=== PATIENT | male | born 1970 | race Caucasian/White ===

== ENCOUNTER 2018-07-27 02:35 | Outpatient (CLI) | payer BC, SELFPAY ==
[2018-07-27 07:55] LABS: HCT 42.4 % (40.0-50.0); HGB 14.1 g/dL (13.5-17.5); Mean Corp. HGB Concentration 33.3 g/dL (32.0-36.0); Mean Corpuscular Hemoglobin 29.6 pg (27.0-33.0); Mean Corpuscular Volume 89.1 fL (80-95); Mean Platelet Volume 9.1 fL (8.0-11.0); Platelet Count 291 x1000/uL (130-400); RBC 4.76 m/cumm (4.50-6.00); RBC Distribution Width 13.4 % (11.8-14.1); White Blood Cell Count 7.36 k/cumm (4.4-10.8)
[2018-07-27 09:19] LABS: ALT 35 U/L (12-78); AST 21 U/L (15-37); Albumin 3.6 g/dL (3.4-5.0); Alkaline Phosphatase 97 U/L (46-116); Anion Gap 5.1 mmol/L (3-11); BUN 24 mg/dL (7-18); Bilirubin, Total 0.7 mg/dL (0.2-1.0); CO2 31.9 mmol/L (21.0-32.0); CREATININE 1.07 mg/dL (0.70-1.30); Calcium 9.1 mg/dL (8.5-10.1); Chloride 98 mmol/L (98-107); Glucose 90 mg/dL (70-100); HDL Cholesterol 48 mg/dL (40-60); Potassium 4.6 mmol/L (3.5-5.1); Sodium 135 mmol/L (136-145); Total Protein 7.6 g/dL (6.4-8.2); Triglyceride 96 mg/dL (30-150)
[2018-07-27 09:26] LABS: Calculated LDL 402; Cholesterol 469 mg/dL (50-200)
[2018-07-30 11:30] LABS: PSA, Screening 0.3 ng/ml (0-2.5)
== END 2018-07-27 02:55 ==
PROVIDERS: PCP Family Medicine; Visit Provider Family Medicine
DX: E78.5 Hyperlipidemia, unspecified (principal); Z00.00 Encounter for general adult medical examination without abnormal findings; Z12.5 Encounter for screening for malignant neoplasm of prostate
CPT/HCPCS: 36415; 80053; 80061; 83721; 84153; 85027

== ENCOUNTER 2018-11-16 09:53 | Outpatient (CLI) | payer BC, SELFPAY ==
--- NOTE | 2018-11-16 15:15 | DI.RAD_ITS ---
EXAM: XR KNEE LT 4V AP,LAT,TOMMY,PAT INDICATION: LT LEG/KNEE PAIN AND SWELLING. COMPARISON: No exams were available for comparison TECHNIQUE: 2D digital imaging was performed. FINDINGS: Four views were obtained. No prior examination is available. Well-circumscribed is sclerotic lesion s noted in distal femur and proximal tibia consistent with bone islands. No other significant bony a bnormality seen. IMPRESSION:
== END 2018-11-16 10:13 ==
PROVIDERS: PCP Family Medicine; Visit Provider Chiropractor Orthopedic
DX: M25.562 Pain in left knee (principal); M79.605 Pain in left leg; M89.8X6 Other specified disorders of bone, lower leg
CPT/HCPCS: 73564

== ENCOUNTER 2018-11-29 00:37 | Outpatient (CLI) | payer BC, SELFPAY ==
--- NOTE | 2018-11-29 15:40 | DI.MRI_ITS ---
EXAM: MR LUMBAR SPINE WO CLINICAL HISTORY: LT SCIATICA. TECHNIQUE: Multiplanar multisequence MRI was performed. COMPARISON: No exams were available for comparison FINDINGS: The T12-L1 through L2-3 levels are unremarkable. At L3-4, there is a large left lateral disc herniation with extrusion of disc material superiorly pos terior to the L3 vertebral body. This impinges on the left side of the anterior thecal sac as well a s enters into the arm left foramen impinging L3 nerve root. There is mild disc bulging at L4-5 sligh tly impinges on the anterior thecal sac. There are mild facet degenerative changes but no significan t neural foraminal narrowing. At L5-S1, there is moderate to severe loss of disc height, endplate osteophytes and degenerative sign al changes in the endplates. There is no neural foraminal narrowing or central canal stenosis. IMPRESSION: Large left-sided disc herniation with superior extrusion of disc material at L3-4. There is impingem ent on the left L3 nerve root.
== END 2018-11-29 00:57 ==
PROVIDERS: PCP Family Medicine; Visit Provider Chiropractor Orthopedic
DX: M54.42 Lumbago with sciatica, left side (principal); M51.16 Intervertebral disc disorders with radiculopathy, lumbar region; M47.26 Other spondylosis with radiculopathy, lumbar region
CPT/HCPCS: 72148

== ENCOUNTER 2019-06-09 20:05 | Emergency (ER) | payer BC, SELFPAY ==
[2019-06-09 20:09] VITALS: BP 135/71; PULSE 58; RESP 15; TEMP 36.5; O2SAT 98
[2019-06-09 20:13] VITALS: BP 125/70; PULSE 59
--- NOTE | 2019-06-09 20:19 | ED.GENADUL_ITS ---
Discharge Plan Disposition Patient Disposition: HOME Condition: Stable Discharge Details Chief Complaint: Dizzy/Sync Clinical Impression: Syncope Primary Care Provider: Edison Giles ED Provider: Josep Guzman Home Meds and New Rx's Prescriptions: No Action NO DAILY MEDICATIONS RF: 0 Discharge Instructions Instructions: Syncope (ED) Additional Instructions: Your blood work and cat scan did not show any significant abnormality. there is a chance this could have been a seizure. You should not bathe or swim alone or operate heavy machinery for 6 months or until cleared by primary care provider follow up with your primary care provider this week if you feel more ill, have recurrent episodes, difficulty breathing or chest pain/pressure return to the emergency department Medical Decision Making 48 yo male with hx of bph and hld not on meds comes in with chief complaint of syncope. An hour or so ago at home he states he was walking, felt lightheaded then fell. He was unconscious per report by ems from his for less than a minute. He had 2 more episodes and one episode he hit his head. He arrives hd stable in no distress and has no complaints. He denies any chest pain dyspnea, headache, abd pain, back pain, fevers, cough. He does state he thinks he drank less fluids than he normally does today. He is caox4 with no focal deficits, nih of 0 speech is clear, normal heart souds and normal lung exam and no abd tenderness. EKGunremarkable. Suspect possible dehydration but given multiple episodes will eval for anemia, electrolyte abnormalities and also obtain ct head given the head trauma and monitor. Could also be seizure but no tonic clonic movements labs show no evidence of significant acidosis, normal chemistries and cbc and negative CT for acute pathology. normal tele here and remains asymptomatic, feel he is safe for d/c. Advised no swimming or bathing alone and no driving or operating heavy machinery for 6 months or until cleared by pcp and return precautions given Differential Diagnosis Differential Diagnosis: dehydration, vasovagal, arrythmia Medical Records Medical records reviewed: Yes I reviewed the patient's medical records. Imaging Data Radiologic Study: Attestation: I personally reviewed and interpreted this imaging study as follows: Imaging: CT Scan Radiologist's impression: PROCEDURE INFORMATION: Exam: CT Head Without Contrast Exam date and time: 06/09/2019 20:28 Age: 48 years old Clinical indication: Syncope and collapse; Patient HX: Syncope/head trauma. Py states that he loses unconsciousness and then falls TECHNIQUE: Imaging protocol: Computed tomography of the head without contrast. Radiation optimization: All CT scans at this facility use at least one of these dose optimization techniques: automated exposure control; mA and/or kV adjustment per patient size (includes targeted exams where dose is matched to clinical indication); or iterative reconstruction. COMPARISON: No relevant prior studies available. FINDINGS: Brain: No hemorrhage. No significant white matter disease. No edema. Ventricles: No ventriculomegaly. 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 No acute calvarial pathology. Sinuses: Trace mucosal thickening right ethmoid air cells not likely to be clinically significant. No airfluid levels. Mastoid air cells: No mastoid effusion. Soft tissues: No suspicious lesions. IMPRESSION: 1. No acute intracranial findings. 2. Minor incidental findings as described. Lab Data Lab results reviewed: Yes I reviewed the patient's lab results. ECG Data Attestation: I personally reviewed and interpreted this ECG (s) as follows: Prior ECG tracings: not available for review Interpretation: sinus bradycardia, rate of 57, qtc 385, no acute st t wave ischemic findings HPI General Mode of arrival: EMS . Date/Time Provider Initiated Documentation: 06/09/19 20:17 . Limitations to Documentation: no limitations . Information obtained by: patient . History of Present Illness 48 year old M presents to the emergency department with the chief complaint of syncope, described as moderate, and it has been now resolved. No relieving factors improve symptom(s), No exacerbating factors reported . Patient notes no other symptoms.. Patient did receive the following treatments prior to arrival, none Related Data Home Medications Medication Instructions Recorded Confirmed No Daily Medications 10/22/12 12/12/18 Allergies Allergy/AdvReac Type Severity Reaction Status Date / Time No Known Allergies Allergy Unverified 06/09/19 20:12 General Stated Complaint: Dizzy/Sync PAULINA: 3 Review of Systems All systems reviewed & are unremarkable except as noted in HPI and below Constitutional Constitutional: Denies chills and Denies fever(s) Cardiovascular Cardiovascular: Denies chest pain and Denies dyspnea Respiratory Respiratory: Denies cough and Denies dyspnea Gastrointestinal Gastrointestinal: Denies abdominal pain, Denies nausea and Denies vomiting Musculoskeletal Musculoskeletal: Denies joint swelling Psychiatric Psychiatric: Denies depression PFSH Family History Mother Hyperlipidemia Father No problems noted. Brother No problems noted. Paternal Grandfather , 90 Heart disease Maternal Grandmother , 90 Essential hypertension Heart disease Hyperlipidemia Paternal Grandmother , 89 No problems noted. Son No problems noted. 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 Pets and animals: Yes Pets and animals: cat(s) and dog(s) Sexually active: Yes Do you think of yourself as: straight/heterosexual Current gender identity: male What is your relationship status?: How often do you talk on the phone with friends or family?: once per week How often do you get together with friends or relatives?: once per week How often do you attend spiritism or mosque services?: 4 or more times per year Do you belong to any clubs or organized social groups?: yes Panel score (0-1 are the most socially isolated patients): 3 What type of physical activity do you participate in: walking Duration: 15-30 minutes/day Frequency: 5-6 times per week Rosario/Cheondoism: Pentecostalism Special rosario needs: No Seatbelt use: always Drive intox or ride w/intox form setter/driver: No Do you feel safe at home: Yes Do you feel safe in your relationship?: Yes Exam Const General: no acute distress Orientation: alert HENMT Head: normal to inspection Ears: external ears normal General nose exam: external nose normal Mouth: moist mucous membranes Eyes General: appearance normal, both eyes and all related structures Neck Neck: normal visual inspection Resp Effort & Inspection: normal respiratory effort and able to speak in complete sentences Cardio Rate: regular rate Skin General skin exam: no rashes or lesions noted Neuro General: patient alert and patient oriented x3 Extrem General: normal to inspection Psych Mental Status: mental status grossly normal Course Vital Signs Vital signs: Vital Signs Temperature 36.5 C 06/09/19 20:09 Pulse 58 L 06/09/19 20:09 Respiratory Rate 15 06/09/19 20:09 Blood Pressure 135/71 06/09/19 20:09 Pulse Oximetry 98 06/09/19 20:09 Temperature 36.5 C 06/09/19 20:09 Temperature Source Temporal Artery Scan 06/09/19 20:09 Pulse 58 L 06/09/19 20:09 Respiratory Rate 15 06/09/19 20:09 Respiratory Effort 06/09/19 20:16 Blood Pressure 135/71 06/09/19 20:09 Blood Pressure Position Sitting 06/09/19 20:09 Pulse Oximetry 98 06/09/19 20:09 Oxygen Delivery Method Room Air 06/09/19 20:09 Oxygen Flow Rate 0 06/09/19 20:09 Pain Level 0 06/09/19 20:09
[2019-06-09 20:21] VITALS: BP 131/72; PULSE 58
[2019-06-09 20:23] LABS: BE (Venous) 5.6 mmol/L (-3-3); HCO3 (Venous) 31 mmol/L (22-28); O2 Sat (Venous) 43 % (70-80); TCO2 (Venous) 28 mmol/L (22-29); pCO2 (Venous) 58 mm/Hg (34-47); pH (Venous) 7.34 (7.35-7.45); pO2 (Venous) 26 mm/Hg (28-44)
[2019-06-09 20:24] LABS: Lactate 1.2 mmol/L (0.6-1.4)
[2019-06-09 20:28] VITALS: BP 144/70; PULSE 62
--- NOTE | 2019-06-09 20:43 | DI.CT_ITS ---
EXAM: CT HEAD WO CLINICAL HISTORY: syncope, head trauma. TECHNIQUE: Imaging Protocol: Axial computed tomography images with coronal and sagittal reformatted images were created and reviewed COMPARISON: No exams were available for comparison FINDINGS: Ventricles and Extra axial spaces: Normal in size and morphology for the patient's age. Hemorrhage: None. Cerebral parenchyma: Normal. Midline shift: None. Brainstem/Cerebellum: Normal. Calvarium: No acute fracture. There is a 1.2 x 1.8 x 1.7 cm ground-glass, mildly expansile lesion in the left sphenoid bone adjacent to the sphenoid sinus. 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 Visualized Paranasal sinuses/Mastoids: There is mild mucosal thickening in the ethmoid air cells. Th e remaining visualized paranasal sinuses are clear. The mastoid air cells are well pneumatized. Soft Tissues: Unremarkable. IMPRESSION: No acute intracranial process.No evidence of a skull fracture. RADIATION DOSE DELIVERED: Total DLP DATA REPOSITORY: All CT scans at this facility are submitted to the National Radiology Data Registry (NRDR) Dose Index Registry (DIR) with the [employer] (ACR). RADIATION OPTIMIZATION: All CT scans at this facility use at least one of these dose optimization te chniques: automated exposure control; mA and/or kV adjustment per patient size (includes targeted exa ms where dose is matched to clinical indication); or iterative reconstruction.
--- NOTE | 2019-06-09 20:50 | DI.VRAD_ITS ---
PROCEDURE INFORMATION: Exam: CT Head Without Contrast Exam date and time: 06/09/2019 20:28 Age: 48 years old Clinical indication: Syncope and collapse; Patient HX: Syncope/head trauma. Py states that he loses unconsciousness and then falls TECHNIQUE: Imaging protocol: Computed tomography of the head without contrast. Radiation optimization: All CT scans at this facility use at least one of these dose optimization techniques: automated exposure control; mA and/or kV adjustment per patient size (includes targeted exams where dose is matched to clinical indication); or iterative reconstruction. COMPARISON: No relevant prior studies available. FINDINGS: Brain: No hemorrhage. No significant white matter disease. No edema. Ventricles: No ventriculomegaly. 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 No acute calvarial pathology. Sinuses: Trace mucosal thickening right ethmoid air cells not likely to be clinically significant. No air-fluid levels. Mastoid air cells: No mastoid effusion. Soft tissues: No suspicious lesions. IMPRESSION: 1. No acute intracranial findings. 2. Minor incidental findings as described. Dictated and Authenticated by: Halle Jordan MD. Ordering:RAÚL Car MD
[2019-06-09 20:51] LABS: INR 0.9 (0.9-1.1); PTT Activated 23.9 sec (21.0-31.4); Prothrombin Time 9.4 sec (9.3-11.0)
[2019-06-09 20:55] LABS: ALT 33 U/L (16-63); AST 23 U/L (15-37); Albumin 3.6 g/dL (3.4-5.0); Alkaline Phosphatase 117 U/L (46-116); Anion Gap 6.4 mmol/L (3-11); BUN 22 mg/dL (7-18); Bilirubin, Direct 0.09 mg/dL (0.00-0.20); Bilirubin, Total 0.3 mg/dL (0.2-1.0); CO2 30.6 mmol/L (21.0-32.0); Chloride 101 mmol/L (98-107); Glucose 132 mg/dL (74-106); Lipase 119 U/L (73-393); Magnesium 2.2 mg/dL (1.8-2.4); NT-proBNP 42 pg/mL (<300); Potassium 3.4 mmol/L (3.5-5.1); Sodium 138 mmol/L (136-145)
[2019-06-09 20:57] LABS: Troponin I < 0.05 ng/Ml (<0.06)
[2019-06-09 21:03] LABS: Abs Immature Grans 0.01 k/cumm (0.0-0.09); Absolute Basophil Count 0.03 k/cumm (0.0-0.2); Absolute Eosinophil Count 0.16 k/cumm (0.0-0.7); Absolute Lymphocyte Count 2.77 k/cumm (1.2-3.4); Absolute Monocyte Count 0.29 k/cumm (0.11-0.7); Absolute Neutrophil Count 3.66 k/cumm (1.2-6.7); Basophils % 0.4; Eosinophils % 2.3; HCT 44.3 % (40.0-50.0); HGB 14.8 g/dL (13.5-17.5); Immature Grans % 0.1 %; Mean Corp. HGB Concentration 33.4 g/dL (32.0-36.0); Mean Corpuscular Hemoglobin 29.4 pg (27.0-33.0); Mean Corpuscular Volume 87.9 fL (80-95); Monocytes % 4.2; Platelet Count 285 x1000/uL (130-400); RBC 5.04 m/cumm (4.50-6.00); RBC Distribution Width 13.7 % (11.8-14.1); White Blood Cell Count 6.92 k/cumm (4.4-10.8)
--- NOTE | 2019-06-09 21:12 | NUR.NOTE ---
Nursing Note: Pt denies any dizziness at this time. Has been able to recall events of the day. Stands without assist. Waiting lab results.
[2019-06-09 21:15] VITALS: BP 121/77; PULSE 69; RESP 15
[2019-06-09 21:17] LABS: Bilirubin Negative (Negative); Blood Negative (Negative); Clarity Clear (Clear); Glucose Negative (Negative); Ketones Negative (Negative); Leukocyte Esterase Negative (Negative); Nitrite Negative (Negative); Specific Gravity >= 1.030 (1.005-1.025); Urobilinogen 0.2 EU/dL (Up TO 0.2)
[2019-06-09 21:24] LABS: ETHANOL BLOOD < 3.0 mg/dL (<3)
[2019-06-09 21:41] LABS: *AMPHETAMINES SCREEN URINE Negative (Negative); *BARBITURATES SCREEN URINE Negative (Negative); *BENZODIAZEPINES SCREEN URINE Negative (Negative); Cannabinoids THC Negative (Negative); Cocaine Screen,Urine Negative (Negative); METHADONE URINE SCREEN Negative (Negative); OPIATES URINE SCREEN Negative (Negative)
[2019-06-09 21:46] LABS: Tricyclic Antidepressants Negative (Negative)
--- NOTE | 2019-06-09 21:55 | NUR.NOTE ---
Nursing Note:copied referal to [facility] to make appt the dr is in [place]
[2019-06-09 21:58] VITALS: BP 117/67; PULSE 64; RESP 17; TEMP 36.7; O2SAT 98
== END 2019-06-09 21:55 | disposition home or self-care (01) ==
PROVIDERS: Emergency Provider Emergency Medicine; PCP Family Medicine
DX: R55 Syncope and collapse (principal)
CPT/HCPCS: 80053; 80307; 82805; 83690; 93005; 99284; 70450; 80320; 81003; 82248; 83605; 83735; 83880; 84484; 85025; 85610; 85730; 93010

== ENCOUNTER 2019-06-19 01:28 | Outpatient (CLI) | payer BC, SELFPAY ==
--- NOTE | 2019-06-19 07:34 | DI.US_ITS ---
APPROVED REPORT EXAM: Comprehensive 2D, Doppler, and color-flow Echocardiogram Patient Location: Out-Patient Loading Unit Operator Seating: Carrie Casanova RDCS (AE) Indications: Syncope Other Information Study Quality: Excellent Conclusion Normal left ventricular wall thickness and chamber size. Estimated ejection fraction is 60%. There are no segmental wall motion abnormalities There is no chamber enlargement There are no structural valvular abnormalities Trace physiologic mitral, tricuspid, and pulmonic regurgitation Wall motion Left Ventricle The left ventricle is normal size. The left ventricular systolic function is normal. The left ventric ular ejection fraction is within the normal range. There is normal left ventricular wall thickness. T here is normal LV segmental wall motion. The left ventricular diastolic function is normal. There is no ventricular septal defect visualized. LVEF is 60%. Right Ventricle The right ventricle is normal size. The right ventricular systolic function is normal. The RVSP is 19 mmHg. Atria The left atrium size is normal. The right atrium size is normal. The interatrial septum is intact wit h no evidence for an atrial septal defect. Aortic Valve The aortic valve is normal in structure. Aortic valve is trileaflet. There is no aortic valvular sten osis. No aortic regurgitation is present. Mitral Valve The mitral valve is normal in structure. No evidence of mitral valve stenosis. Trace mitral regurgita tion. Tricuspid Valve The tricuspid valve is normal in structure. There is no tricuspid valve stenosis. Trace tricuspid reg urgitation. Pulmonic Valve The pulmonary valve is normal in structure. There is no pulmonic valvular stenosis. Trace to mild pul jaden regurgitation. Great Vessels The aortic root is normal in size. The ascending aorta is normal in size. IVC is normal in size and c ollapses >50% with inspiration. Pericardium There is no pericardial effusion. There is no pleural effusion. 2D Dimensions IVSD d PLAX 0.88 cm M: 0.6-1.2 LV Vol A2C d MOD 96.3 mL LVPW d PLAX 0.87 cm M: 0.6 - 1.2 LV Vol A4C d MOD 91.8 mL LVID d PLAX 4.89 cm M: 4.2 - 5.8 LA vol/ BSA A2C s A-L 25.2 mL/m2 LVDs 2.90 cm M: 2.5 - 4.0 LA vol/ BSA A4C s A-L 11.9 mL/m2 Ao Root d 2.84 cm M: 3.1 - 3.7 LA Vol/ BSA Biplane s A-L 18.9 mL/m2 RA Area A4C 12.57 cm2 LA Area A4C s MOD 10.54 cm2 RA Vol/ BSA A4C s A-L 15.2 mL/m2 LA Area A2C s MOD 16.74 cm2 Ao Asc Diam d 2.91 cm M: 2.6 - 3.4 LV EF A4C MOD 58.3 % LV EF Teichholz 71.1 % LV EF A2C MOD 58.2 % LVEF (Crook's) 58.18 % M: 52 - 72 LV EF Biplane MOD 58.2 % LV Volume 70.67 mL M: 62 - 150 LV Volume Index 35.15 mL/m2 M: 34 - 74 LV Vol Biplane MOD 94.4 mL FS 40.50 % M-Mode TAPSE 2.50 cm (M/F) >1.7 LV Diastology MV E' medial 0.106 (>0.07 m/s) E/A Ratio 1.6 LV E/e MED 7.75 (<14) MV E Vmax 0.82 (0.4-1.3 m/s) MV E' lateral 0.146 (>0.1 m/s) MV A Vmax 0.50 (0.4-1.3 m/s) LV E/e LAT 5.60 (<14) MV E/A Ratio 1.56 MV E/E' medial 7.75 MV E/E' lateral 5.63 Aortic Valve LVOT Area 3.23 cm2 AoV Area Vmax 2.74 cm2 LVOT Vmax 1.09 m/s AoV Area/ BSA (Vmax) 1.36 cm2/m2 LVOT Mean Gary. 0.66 m/s FLAKO Mean Gary. 2.42 cm2 LVOT Peak Grad 4.8 mmHg FLAKO Mean Gary. Index 1.20 cm2/m2 LVOT Mean Grad 2.1 mmHg LVOT VTI 0.212 m LVOT Diam s 2.00 cm (M/F) 1.5-2.5 AoV Vmax 1.29 (0.5-1.3 m/s) Velocity Ratio 0.84 AoV Mean Gary. 0.88 m/s AoV Peak Grad 6.6 mmHg LVOT SV 68.35 mL AoV Mean Grad 3.7 (<5 mmHg) AoV VTI 0.233 (0.18-0.25 m) AoV Area VTI 2.93 (2.5-4.5 cm2) AoV Area/ BSA (VTI) 1.45 cm/m2 Mitral Valve MV DT 202 (160-240 msec) MV PHT 58 msec MV Area PHT 3.76 cm2 Pulmonary Valve PV Vmax 1.03 (0.5-1.5 m/s) RVOT Peak Gr. 2.15 mmHg PV Peak Grad 4.2 mmHg RVOT Mean Gr. 0.95 mmHg PV Mean Grad 2.1 mmHg RVOT VTI 0.162 m PV VTI 0.232 m RVOT Vmax 0.73 m/s Tricuspid Valve TR Peak Grad 16.0 mmHg TR Vmax 2.00 m/s RA Pressure 3.00 mmHg RVSP (TR) 19.1 mmHg
== END 2019-06-19 01:48 ==
PROVIDERS: PCP Family Medicine; Visit Provider Family Medicine
DX: R55 Syncope and collapse (principal)
CPT/HCPCS: 93306

== ENCOUNTER 2019-06-19 02:35 | Outpatient (CLI) | payer BC, SELFPAY | END 2019-06-19 02:55 | PROVIDERS: PCP Family Medicine; Visit Provider Family Medicine | DX: R55 Syncope and collapse (principal) | CPT/HCPCS: 93225 ==

== ENCOUNTER 2019-06-21 16:30 | Outpatient (CLI) | payer BC, SELFPAY ==
--- NOTE | 2019-06-24 08:58 | W.HOLTRPT ---
Date of service: 06/24/19 Time of Service: 08:58 Holter Monitor Report Holter Monitor Note: Monitor ordered for the indication of syncope. ?Patient was in normal sinus rhythm for the majority of the recording (mean heart rate 66 bpm) ?There were 0 episodes of supraventricular tachycardia and rare PACs. ?There was one episode of ventricular tachycardia which lasted 8 beats at a rate of 227 bpm. There were no ventricular ectopic beats. ?There were no pauses greater than 3 seconds, no evidence of high degree heart block and no episodes of atrial fibrillation. ?There were no patient recorded events.
== END 2019-06-21 16:50 ==
PROVIDERS: PCP Family Medicine; Visit Provider Family Medicine
DX: R55 Syncope and collapse (principal)
CPT/HCPCS: 93226

== ENCOUNTER 2019-07-04 01:19 | Outpatient (CLI) | payer BC, SELFPAY ==
--- NOTE | 2019-07-04 08:00 | ETT_ITS ---
APPROVED REPORT Exam: Exercise Treadmill Patient Location: Out-Patient Room/Bed: Stress Nurse: Isabel Turner RN BMI: 24.40 Baseline Rhythm: Sinus Rhythm Indications: NSVT, Ventricular tachycardia, hyperlipidemia. Medical History Medical History: Hyperlipidemia Cardiac Medications: Rosuvastatin/ Crestor Allergies: No known drug allergies Cardiac Risk Factors: Hyperlipidemia, FHX of CAD Pretest Chest Pain Characteristics: No chest pain Exercise History: Physically active Lung Sounds: Clear to auscultation Heart Sounds: Regular Stress Test Details Test: Exercise stress testing was performed using a Sylvester protocol. Rest Stress HR Resting HR Supine: 65 bpm Resting HR Standin bpm Max HR Achieved: 185 bpm Recovery HR: 98 bpm HR response to stress: Normal HR response to stress BP Resting BP Supine: 142/80 mmHg Resting BP Standin/82 mmHg Max BP: 168/58 mmHg Recovery BP: 144/76 mmHg BP response to stress: Normal blood pressure response to stress. ECG Resting ECG: Sinus Rhythm Stress ECG: Sinus Tachycardia ST Change: ST depressions most prominent in stage 5 Lead(s): V4, V5, V6 Arrhythmia: None Recovery ECG: Sinus Rhythm Recovery Arrhythmia: None Comment: ST segments returned to baseline by 1 minute recovery Clinical Stress Symptoms: none Exercise duration: 14 min00 sec Highest Stage Reached: Stage 5: 5.0 mph at 18% grade. Exercise capacity: 14.86 METs Functional Capacity: Above average capacity Stress ECG Conclusion 1. The patient exercised for 14 minutes (15 minutes). Rate-pressure product was 30,000. 2. The patient had no symptoms suggestive of ischemia and exercise was stopped due to fatigue and ST depressions. 3. Patient had [address] depressions in the lateral leads starting in stage III and lasted until 2 brittany hillary of recovery. 4. The Leger Score ( -3) estimates an annual cardiovascular mortality of 2% and a five year survival o f 89% Using the Leger Score there is an intermediate probability of angiographic coronary disease. Stress Test Summary STAGE Time (mins) Speed (mph) Grade (%) HR BP SYMPTOMS METS Supine 65 142/80 Standing 67 146/82 1 3 1.7 10 99 150/76 4.6 2 6 2.5 12 120 158/72 7 3 9 3.4 14 143 166/68 10.2 4 12 4.2 16 158 12.9 5 15 5.0 18 182 17.2 1 min recovery 148 168/58 3 min recovery 108 164/68 6 min recovery 98 144/76
== END 2019-07-04 01:39 ==
PROVIDERS: PCP Family Medicine; Visit Provider Internal Medicine Cardiovascular Disease
DX: E78.5 Hyperlipidemia, unspecified; R53.83 Other fatigue; R94.31 Abnormal electrocardiogram [ECG] [EKG]; Z82.49 Family history of ischemic heart disease and other diseases of the circulatory system; I47.2 Ventricular tachycardia
CPT/HCPCS: 93017

== ENCOUNTER 2019-12-16 03:44 | Outpatient (CLI) | payer BC, SELFPAY ==
[2019-12-16 13:03] LABS: ALT 103 U/L (16-63); Calculated LDL 172 mg/dL (<100); Cholesterol 257 mg/dL (<200); Glucose 91 mg/dL (74-106); HDL Cholesterol 67 mg/dL (40-60); TSH 1.61 uIU/mL (0.36-3.74); Triglyceride 91 mg/dL (<150)
[2019-12-17 16:45] LABS: Lipoprotein (a) 105 mg/dL (<=30)
== END 2019-12-16 04:04 ==
PROVIDERS: PCP Family Medicine; Visit Provider Internal Medicine Cardiovascular Disease
DX: E78.01 Familial hypercholesterolemia (principal)
CPT/HCPCS: 36415; 80061; 82947; 83695; 84443; 84460

== ENCOUNTER 2020-12-18 03:46 | Outpatient (CLI) | payer BC, SELFPAY ==
[2020-12-18 08:33] LABS: ALT 69 U/L (16-63); AST 39 U/L (15-37); Albumin 4.3 g/dL (3.4-5.0); Alkaline Phosphatase 87 U/L (46-116); Bilirubin, Direct 0.2 mg/dL (0.0-0.2); Bilirubin, Total 0.8 mg/dL (0.2-1.0); Total Protein 7.7 g/dL (6.4-8.2)
[2020-12-18 08:34] LABS: ALT 69 U/L (16-63)
[2020-12-18 08:44] LABS: Calculated LDL 65 mg/dL (<100); Cholesterol 150 mg/dL (<200); HDL Cholesterol 73 mg/dL (40-60); Triglyceride 63 mg/dL (<150)
== END 2020-12-18 03:47 | disposition home or self-care (01) ==
LOC: LBO 03:46
PROVIDERS: Internal Medicine Cardiovascular Disease; PCP Nurse Practitioner Family; Visit Provider Internal Medicine
DX: E78.01 Familial hypercholesterolemia (principal); I25.10 Atherosclerotic heart disease of native coronary artery without angina pectoris; R94.5 Abnormal results of liver function studies
CPT/HCPCS: 36415; 80061; 80076; 84460

== ENCOUNTER 2021-05-28 02:32 | Outpatient (CLI) | payer BC, SELFPAY ==
[2021-05-28 17:21] LABS: ALT 67 U/L (16-63); AST 40 U/L (15-37); Albumin 4.2 g/dL (3.4-5.0); Alkaline Phosphatase 82 U/L (46-116); Calculated LDL 65 mg/dL (<100); Cholesterol 139 mg/dL (<200); HDL Cholesterol 60 mg/dL (40-60); Total Protein 7.4 g/dL (6.4-8.2); Triglyceride 71 mg/dL (<150)
[2021-05-28 17:31] LABS: Bilirubin, Direct 0.2 mg/dL (0.0-0.2)
== END 2021-05-28 02:33 | disposition home or self-care (01) ==
LOC: LBO 02:32
PROVIDERS: PCP Nurse Practitioner Family; Visit Provider Internal Medicine
DX: R79.89 Other specified abnormal findings of blood chemistry (principal); E78.01 Familial hypercholesterolemia
CPT/HCPCS: 36415; 80061; 80076

== ENCOUNTER 2021-06-09 09:36 | Day surgery (SDC) | payer BC, SELFPAY ==
--- NOTE | 2021-06-09 06:55 | W.COLOREPORT ---
Colonoscopy Report Date of procedure: 06/09/21 Pre-op diagnosis general: Colon cancer screening Post-op diagnosis procedure note: same Procedure: Colonoscopy Surgeon: Hannah Marcelo Anesthesia Type: General:No Airway Estimated blood loss (mL): 0 Pathology: none sent Complications: None Disposition: same day Indications: The patient is here for Colonoscopy pre-op. He has no family history of colon cancer. He has not had any bowel habit changes. -Discussed colonoscopy bowel prep as well as the procedure. Discussed possible complications of the procedure to include bleeding, pain, perforation, missed small lesion/polyp, sore throat, aspiration and adverse reaction to the medications. Questions were answered to patient?s satisfaction. No guarantees were implied or given. Prep: Miralax/Dulcolax Procedure Start Time: 12:12 Procedure End Time: 12:28 Retraction Time: 7 minutes Findings: Normal colon Procedure Description: After informed consent was obtained the patient was taken to the procedure room and placed in a left decubitous position. Monitors were applied and a time out was done. The patients name, date of , procedure, allergies to medications and metal in their body was reviewed. The patient was then sedated. Once sedated and comfortable a rectal exam was done. External exam was normal. Internal exam revealed a normal sphincter tone and no palpable masses. The prostate felt slightly enlarged. The scope was then introduced and retro-flexed. No internal hemorrhoids, polyps or masses were identified on retro-flexion. The scope was then advanced to the cecum without difficulty. The ileocecal vlave and appendiceal orifice were identified. The prep was good. The scope was then slowly retracted over 7 minutes back into the rectum. There were no Polyps. There was no diverticulosis noted. The scope was removed and the patient was woken up and taken back to Same day surgery in stable condition. The patient tolerated the procedure well and there were no immediate complications. Follow up: The patient should follow up in 10 years unless they develop changes in bowel habits or other new gastrointestinal complaints.
--- NOTE | 2021-06-09 06:58 | W.PM.DSUDISC ---
Discharge Plan Disposition Patient Disposition: HOME Condition: Good Discharge Details Reason For Visit: Colonoscopy Attending Provider: Hannah Marcelo Primary Care Provider: Willian Bell Home Meds and New Rx's Prescriptions: Continued ezetimibe [Zetia] 10 mg tablet 10 mg PO DAILY 0RF rosuvastatin 10 mg tablet 10 mg PO DAILY Qty: 90 6RF cholecalciferol (vitamin D3) 50 mcg (2,000 unit) capsule 50 mcg PO DAILY 0RF zinc gluconate 30 mg tablet 30 mg PO DAILY 0RF Repatha SureClick 140 mg/mL pen injector 140 mg subcut Q2W 0RF coenzyme Q10 60 mg capsule 120 mg PO DAILY 0RF Rx Instructions: 120mg aspirin 81 mg tablet,delayed release (DR/EC) 81 mg PO DAILY Qty: 90 0RF Discontinued bisacodyl [Dulcolax (bisacodyl)] 5 mg tablet,delayed release (DR/EC) 5 mg PO ONCE Qty: 4 0RF Rx Instructions: Take according to provider's instructions for colonoscopy prep. polyethylene glycol 3350 17 gram/dose powder 17 g PO ONCE Qty: 238 0RF Rx Instructions: To be taken as directed by prescriber's office for colonoscopy prep. Discharge Instructions Additional Instructions: Findings: Normal Follow up: 10 years Please call if you develop: fevers >101.5 Nausea or Vomiting Abdominal pain that is not transient Rectal bleeding that is more then a tbsp A hard abdomen and inability to pass gas DAY SURGERY UNIT POST ENDOSCOPY INSTRUCTIONS Instructions for everyone who is given Anesthesia: For your safety, please do the following for the next 24 Hours: a. Do not drive or operate dangerous equipment b. Do not drink alcohol beverages or use any recreational drugs for the first 24 hours or while taking pain medications. The medications in your body may have a reaction that can be dangerous. c. Do not make any important decisions or sign any important papers 1. Generally there are no restrictions on your activity after a day or so has gone by, but you may feel a bit fatigued for a few days. 2. After you arrive home you may have a light meal and return to a normal diet as you can tolerate it without feeling sick to your stomach. 3. After surgery, you may feel pain or discomfort. This should be only transient, but if it persists please contact your doctor. 4. If there are any questions regarding the findings of your procedure, please feel free to contact your doctor. 6. If you are unable to contact your doctor with a problem, contact the hospital at [phone]. 7. Continue all your regular medications unless directed otherwise. I understand the above instructions and have no questions. Signature of Patient or Responsible Adult Escort Date/Time Name of Responsible Adult Escort Signature of Nurse Date/Time Activity:: Activity as Tolerated Diet:: As Tolerated Discharge Orders Discharge Orders: Discharge Order (Routine); Ordered 06/09/21 Ordered By: Hannah Marcelo
[2021-06-09 09:46] VITALS: BP 134/73; PULSE 56; RESP 16; TEMP 36.5; O2SAT 98
[2021-06-09] MEDS: Lactated Ringers 1,000 ML 80 ML IV (10:09)
--- NOTE | 2021-06-09 10:24 | W.ANESPRE ---
General Info Date of Service Date Performed: 06/09/21 Height: 6 ft Weight: 84.1 kg Body Mass Index (BMI): 25.1 Surgical Procedure: Operation Date: 06/09/21 12:35 Proposed Procedure Side Surgeon p Colonoscopy Hannah Marcelo MD Meds Allergies and Home Medications Allergies Allergy/AdvReac Type Severity Reaction Status Date / Time No Known Allergies Allergy Verified 06/07/21 13:49 Home Medication Medication Instructions Recorded ezetimibe 10 mg tablet (Zetia) 10 mg PO DAILY 08/03/19 aspirin 81 mg tablet,delayed 81 mg PO DAILY #90 tab 09/27/19 release cholecalciferol (vitamin D3) 50 50 mcg PO DAILY 09/03/20 mcg (2,000 unit) capsule coenzyme Q10 60 mg capsule 120 mg PO DAILY cap 09/03/20 evolocumab 140 mg/mL subcutaneous 140 mg SUBCUT Q2W 09/03/20 pen injector (Ednaa Oraliaick) rosuvastatin 10 mg tablet 10 mg PO DAILY #90 tab 09/03/20 zinc gluconate 30 mg tablet 30 mg PO DAILY 09/03/20 bisacodyl 5 mg tablet,delayed 5 mg PO ONCE #4 tab 05/20/21 release (Dulcolax (bisacodyl)) polyethylene glycol 3350 17 17 g PO ONCE #238 g 05/20/21 gram/dose oral powder Current Visit Medications: Current Medications Generic Name Dose Route Start Last Admin Trade Name Freq PRN Reason Stop Dose Admin Hyoscyamine Sulfate 0.125 mg 06/09/21 06:58 Hyoscyamine 0.125 Mg Sl/Oral/Chew SL DIRECTED PRN Ringer's Solution 1,000 mls @ 80 mls/hr 06/09/21 06:00 06/09/21 10:09 IV 07/08/21 23:59 80 mls/hr INFUSION JAIMEE Administration IV Miscellaneous Supplies 1 each 06/09/21 06:00 Iv Access IV 07/08/21 23:59 DIRECTED JAIMEE Ondansetron HCl 4 mg 06/09/21 06:58 Ondansetron 4 Mg/2 Ml Vial IVP Q4H PRN PRN Nausea / Vomiting Sodium Chloride 0 ml 06/09/21 06:00 Normal Saline Flush 10 Ml Syr IV 07/08/21 23:59 PRN PRN Sodium Chloride 0 ml 06/09/21 06:00 Normal Saline 10 Ml Vial IJ 07/08/21 23:59 DIRECTED PRN Sterile Water 0 ml 06/09/21 06:00 Water,Injection,Sterile 10 Ml Vial IJ 07/08/21 23:59 DIRECTED PRN PFSH Active Problems Active Problems: Problem Status Onset Code Screening for colon cancer Z12.11 Abnormal stress ECG R94.39 NSVT (nonsustained ventricular tachycardia) I47.2 Arrhythmia I49.9 Medical History Medical History BPH (benign prostatic hyperplasia) Herniation of lumbar intervertebral disc with radiculopathy resolved non-surgically Hyperlipidemia Lichen sclerosus et atrophicus Male infertility Surgical History Surgical History No significant past surgical history Tobacco Smoking/Tobacco Use Status: Never Passive smoking exposure: Yes Alcohol Alcohol Intake: current Alcohol intake frequency: a few times a month Alcohol type: hard liquor Substance Use Substance use: Never Substance use type: does not use Vital Signs and Lab Results Vital Signs Most Recent Vital Signs in EMR: Most Recent Vital Signs Temp Pulse Resp BP Pulse Ox 36.5 C 56 L 16 134/73 98 06/09/21 09:46 06/09/21 09:46 06/09/21 09:46 06/09/21 09:46 06/09/21 09:46 Lab Results Blood Type / Crossmatch: No Data to Display Complete Blood Count: No Data to Display Complete Metabolic Panel: Albumin 4.2 g/dL (3.4-5.0) 05/28/21 16:25 05/28/21 Liver Function Panel: Alanine Aminotransferase (ALT/SGPT) 67 U/L (16-63) H 05/28/21 16:25 05/28/21 Aspartate Amino Transf (AST/SGOT) 40 U/L (15-37) H 05/28/21 16:25 05/28/21 Coagulation Panel: No Data to Display Cardiac Panel: No Data to Display Arterial Blood Gas: No Data to Display Venous Blood Gas: No Data to Display Pancreas Panel: No Data to Display Thyroid Panel: No Data to Display Infectious Disease: No Data to Display Blood Cultures: No Data to Display Toxicology Panel: No Data to Display Imaging and Studies Imaging and Studies Study information below may be from another EMR and interpreted by another provider. Please see original notes in EMR for more complete details. Stress Test Summary: Stress ECG Conclusion 1. The patient exercised for 14 minutes (15 minutes). Rate-pressure product was 30,000. 2. The patient had no symptoms suggestive of ischemia and exercise was stopped due to fatigue and ST depressions. 3. Patient had [address] depressions in the lateral leads starting in stage III and lasted until 2 minutes of recovery. 4. The Leger Score ( -3) estimates an annual cardiovascular mortality of 2% and a five year survival of 89% Using the Leger Score there is an intermediate probability of angiographic coronary disease. Echocardiogram Summary: Conclusion Normal left ventricular wall thickness and chamber size. Estimated ejection fraction is 60%. There are no segmental wall motion abnormalities There is no chamber enlargement There are no structural valvular abnormalities Trace physiologic mitral, tricuspid, and pulmonic regurgitation Anesthesia Assessment and Plan Anesthesia History Personal History: No History of General Anesthesia Family History: No Family History of Anesthesia Complications Exercise Tolerance Exercise Tolerance: Metabolic Equivalents>4 Pertinent Negatives Pertinent Negatives: No Symptoms of GERD, No Major Cardiovascular Symptoms or Complaints and No Major Pulmonary Symptoms or Complaints Cardiac & Pulmonary Exam Cardiac Exam: Normal S1/S2 Heart Sounds Pulmonary Exam: Clear Bilateral Breath Sounds Implantable Cardiac Device Does patient have a Pacemaker or an ICD?: No Airway Exam Known Difficult Airway: No Mallampati Class: 2 Mouth Opening: Normal (> 3cm) Thyromental Distance: Greater than 3 cm Facial Hair: Full Millan Neck Range of Motion: Full ROM Neck Circumference: Normal Teeth Condition: Normal Dentition ASA Classification ASA Score: ASA 2 Emergency Case?: No NPO Status NPO Status: NPO Clears >2 hours, Solids >8 hours Anesthesia Plan Resuscitation Status: Full Code Anesthesia Technique: General Anesthesia Airway Planned: Natural Airway Monitors Used: Standard Monitors
[2021-06-09 10:29] VITALS: BMI 25.1
[2021-06-09 12:35] VITALS: BP 116/59; PULSE 74; RESP 16; TEMP 36.5; O2SAT 97
[2021-06-09 13:10] VITALS: BP 137/89; PULSE 57; RESP 16; TEMP 36.5; O2SAT 97
--- NOTE | 2021-06-09 13:26 | W.ANESPOSTOP ---
Postoperative Evaluation Date, Time and Location Date Performed: 06/09/21 Time Performed: 12:46 Patient Location: Day Surgery Unit Vital Signs Most Recent Imported Vital Signs: Most Recent Vital Signs Temp Pulse Resp BP Pulse Ox 36.5 C 57 L 16 137/89 97 06/09/21 13:10 06/09/21 13:10 06/09/21 13:10 06/09/21 13:10 06/09/21 13:10 Pain Score Most Recent Pain Score: Most Recent Pain Score Pain Level 0 06/09/21 13:10 Assessment Mental Status: Awake (Alert & Oriented to Patient Baseline) Airway and Respiratory Function: Patent airway with normal (patient baseline) respiratory exam Cardiovascular Function: Hemodynamically Stable Hydration Status: Adequately Hydrated Nausea & Vomiting: No Nausea or Vomiting Pain: Pt. Denies Any Pain Peripheral Nerve Block: Patient did not receive a nerve block
== END 2021-06-09 13:22 | disposition home or self-care (01) ==
LOC: SUR 09:36
PROVIDERS: PCP Nurse Practitioner Family; Visit Provider Surgery
PROC: 0DJD8ZZ Inspection of Lower Intestinal Tract, Via Natural or Artificial Opening Endoscopic (ICD-10-PCS; CPT 45378; principal; 2021-06-09 12:30)
DX: Z12.11 Encounter for screening for malignant neoplasm of colon (principal); N40.0 Benign prostatic hyperplasia without lower urinary tract symptoms; I47.1 Supraventricular tachycardia
CPT/HCPCS: 45378

== ENCOUNTER 2022-06-28 14:31 | Emergency (ER) | payer OTHER, SELFPAY ==
[2022-06-28 14:45] VITALS: BP 115/63; PULSE 76; RESP 15; TEMP 36.8; O2SAT 94
--- NOTE | 2022-06-28 15:00 | DI.RAD_ITS ---
Exam(s) XR KNEE RT 3V AP,LAT,TOMMY EXAM: XR KNEE RT 3V AP,LAT,TOMMY CLINICAL HISTORY: pain, injury. TECHNIQUE: 2D digital imaging was performed of the right knee. Three views obtained. AP, lateral an d PA tunnel views were obtained. COMPARISON: CR XR KNEE LT 4V AP,LAT,TOMMY,PAT from 11/16/2018 FINDINGS: BONES: No acute fracture is present. No bony destructive lesion is seen. JOINTS: The knee is normally aligned. There is a moderate joint effusion. SOFT TISSUE: Normal. IMPRESSION: There is a moderate joint effusion. DATA REPOSITORY: RADIATION DOSE DELIVERED:
--- NOTE | 2022-06-28 15:53 | ED.GENADUL_ITS ---
Discharge Plan Disposition Patient Disposition: Home Discharge Details Clinical Impression: MCL sprain of right knee Primary Care Provider: Willian Bell ED Provider: Justin Tripp Home Meds and New Rx's Prescriptions: New ibuprofen [IBU] 600 mg tablet 600 mg PO QID PRN (Reason: pain) Qty: 20 0RF Continued ezetimibe [Zetia] 10 mg tablet 10 mg PO DAILY rosuvastatin 10 mg tablet 10 mg PO DAILY Qty: 90 6RF cholecalciferol (vitamin D3) 50 mcg (2,000 unit) capsule 50 mcg PO DAILY zinc gluconate 30 mg tablet 30 mg PO DAILY Repatha SureClick 140 mg/mL pen injector 140 mg subcut Q2W coenzyme Q10 60 mg capsule 120 mg PO DAILY Rx Instructions: 120mg aspirin 81 mg tablet,delayed release (DR/EC) 81 mg PO DAILY Qty: 90 0RF Discharge Instructions Instructions: Knee Sprain (ED), R.I.C.E. Treatment (ED) Additional Instructions: Please remain nonweightbearing with crutches for the next 3 days and then you may slowly advance activity as tolerated. Please wear hinged knee brace at all times during activity but you may remove this while sleeping. Stand Alone Forms: Work Release Referrals: [facility] [Provider Group] (Please call the office tomorrow afternoon for arrangement of follow-up appointment) Discharge Data Discharge Date/Time-TO BE ENTERED AT DEPARTURE: 06/28/22 16:30 Medical Decision Making Patient presenting to the emergency department for chief complaint of right knee injury. Patient reports today at work he fell out of the back of a pickup truck and when he landed his right knee gave out and started having significant pain. He stated ripping/tearing sensation to the medial aspect of the knee. Patient denies all other injury or trauma. Denies any contributing medical conditions or factors that caused the fall beyond simple mechanical fall. Physical exam shows significant tenderness to the medial aspect of the right knee with valgus testing causing significant pain and discomfort. Patient can perform range of motion but will note that this is extremely painful for patient. Radiological imaging was performed and patient did have noted effusion no fracture or dislocation noted. Patient placed on crutches and encouraged to be nonweightbearing for the next 3 days and then may perform activities as tolerated. Placed in hinged knee brace and on orthopedic referral list for suspected MCL sprain/tear. Patient recommended to use NSAIDs and was given prescription for ibuprofen. After discussion of diagnosis and plan of care patient has no further needs, questions, or concerns and states clear understanding to return to the emergency department for any worsening symptoms. This documentation was generated using [employer] dictation system, please disregard any oddities of phrase or misspellings. Imaging Data Radiologic Study: Attestation: I personally reviewed and interpreted this imaging study as follows: Imaging: X-Ray Radiologist's impression: Exam(s) XR KNEE RT 3V AP,LAT,TOMMY EXAM: XR KNEE RT 3V AP,LAT,TOMMY CLINICAL HISTORY: pain, injury. TECHNIQUE: 2D digital imaging was performed of the right knee. Three views obtained. AP, lateral and PA tunnel views were obtained. COMPARISON: CR XR KNEE LT 4V AP,LAT,TOMMY,PAT from 11/16/2018 FINDINGS: BONES: No acute fracture is present. No bony destructive lesion is seen. JOINTS: The knee is normally aligned. There is a moderate joint effusion. SOFT TISSUE: Normal. IMPRESSION: There is a moderate joint effusion. HPI General Mode of arrival: wheelchair . Date/Time Provider Initiated Documentation: 06/28/22 15:13 . Limitations to Documentation: no limitations . Information obtained by: patient and RN notes reviewed . History of Present Illness 51 year old M presents to the emergency department with the chief comp laint of right knee injury, described as moderate, Quality is described as aching and sharp, and is localized to the right and lower extremity. Patient started experiencing this hour(s) (6) and it has been constant. No relieving factors improve symptom(s), Movement worsens symptoms . Patient notes no other symptoms.. Patient did receive the following treatments prior to arrival, none Related Data Home Medications Medication Instructions Recorded Confirmed ezetimibe 10 mg tablet (Zetia) 10 mg PO DAILY 08/03/19 06/28/22 aspirin 81 mg tablet,delayed 81 mg PO DAILY #90 tabs 09/27/19 06/28/22 release cholecalciferol (vitamin D3) 50 50 mcg PO DAILY 09/03/20 06/28/22 mcg (2,000 unit) capsule coenzyme Q10 60 mg capsule 120 mg PO DAILY 09/03/20 06/28/22 evolocumab 140 mg/mL subcutaneous 140 mg subcut Q2W 09/03/20 06/28/22 pen injector (Tunde Bucio) rosuvastatin 10 mg tablet 10 mg PO DAILY #90 tabs 09/03/20 06/28/22 zinc gluconate 30 mg tablet 30 mg PO DAILY 09/03/20 06/28/22 ibuprofen 600 mg tablet (IBU) 600 mg PO QID PRN pain #20 tabs 06/28/22 Previous Rx's Medication Instructions Recorded aspirin 81 mg tablet,delayed 81 mg PO DAILY #90 tabs 09/27/19 release rosuvastatin 10 mg tablet 10 mg PO DAILY #90 tabs 09/03/20 ibuprofen 600 mg tablet (IBU) 600 mg PO QID PRN pain #20 tabs 06/28/22 Allergies Allergy/AdvReac Type Severity Reaction Status Date / Time No Known Allergies Allergy Verified 06/28/22 14:48 General Stated Complaint: Orthopedic PAULINA: 4 Review of Systems Narrative: 6 systems reviewed and unremarkable except what is marked below. Musculoskeletal Musculoskeletal: Reports as per HPI, Reports arthralgias, Reports joint swelling, Reports limited range of motion, Denies muscle weakness, Denies numbness, Reports stiffness and Denies tingling Integumentary/Breasts Skin/Breast: Denies unusual bruising and Denies wounds Neurologic Neurologic: Denies numbness and Denies tingling [facility] All Active Problems (Updated 06/28/22 @ 16:16 by Justin Tripp NP) MCL sprain of right knee (Acute) Hyperlipidemia (Acute) Is seen by [facility] who also orders his labs. BPH (benign prostatic hyperplasia) (Chronic) Abnormal stress ECG (Acute) NSVT (nonsustained ventricular tachycardia) (Acute) Arrhythmia (Acute) 8 beat run of V tach on 48 hour Holter monitor, asymptomatic Medical History Herniation of lumbar intervertebral disc with radiculopathy resolved non-surgically Lichen sclerosus et atrophicus Male infertility Normal colonoscopy (~05/2021) Surgical History History of colonoscopy (~05/2021) No significant past surgical history Family History Mother Hyperlipidemia Father No problems noted. Brother No problems noted. Paternal Grandfather , 90 Heart disease Maternal Grandmother , 90 Essential hypertension Heart disease Hyperlipidemia Paternal Grandmother , 89 No problems noted. Son No problems noted. Brother No problems noted. Sister No problems noted. Social History Smoking/Tobacco Use Status: Never Second Hand Exposure: No Smoking risk assessment performed?: Yes Alcohol Intake: current Alcohol Intake frequency: a few times a month Alcohol type: beer and hard liquor Drug use: Never Substance use type: does not use Caregiver/Support person: No Household members: spouse and children Housing: house Number of Children: 1 Communication Needs: None Do you need help understanding health information?: Never current occupation: [employer] Pets and animals: Yes Pets and animals: cat(s) and dog(s) Sexually active: Yes Do you think of yourself as: straight/heterosexual Current gender identity: male What is your relationship status?: How often do you talk on the phone with friends or family?: twice per week How often do you get together with friends or relatives?: once per week How often do you attend sikh or catholic services?: 4 or more times per year Do you belong to any clubs or organized social groups?: yes Panel score (0-1 are the most socially isolated patients): 4 What type of physical activity do you participate in: walking Duration: 15-30 minutes/day Frequency: 5-6 times per week Rosario/Rastafarian: Mormon Special rosario needs: No Seatbelt use: always Drive intox or ride w/intox professional driver: No Do you feel safe at home: Yes Do you feel safe in your relationship?: Yes Exam Const General: cooperative, no acute distress and not ill appearing Orientation: alert, awake and oriented x3 HENMT Mouth: moist mucous membranes Resp Effort & Inspection: normal respiratory effort, able to speak in complete sentences and no respiratory distress Cardio Rate: regular rate Rhythm: regular rhythm Pulses: normal peripheral pulses Skin General skin exam: no rashes or lesions noted Neuro General: patient alert, patient awake, patient oriented x3, moves all extremities and no focal motor deficits Sensory Exam: no sensory deficits noted Extrem General: normal exam except as noted Right lower extremity: hip/thigh Details: normal to inspection; no tenderness, knee Details: tenderness Location: of the medial joint line, swelling, abnormal ROM Details: pain with active ROM during Details: in extension and in flexion; able to extend lower leg actively, knee ligament exam normal Details: anterior drawer test normal, posterior drawer test normal and varus stress test normal and knee ligament exam abnormal Details: valgus stress test normal; no abrasions, no lacerations and no ecchymosis, lower leg Details: normal to inspection; no tenderness and foot Details: vascular exam Details: dorsalis pedis pulse present and posterior tibial pulse present Course Vital Signs Vital signs: Vital Signs Temperature 36.8 C 06/28/22 14:45 Pulse 76 06/28/22 14:45 Respiratory Rate 15 06/28/22 14:45 Blood Pressure 115/63 06/28/22 14:45 Pulse Oximetry 94 06/28/22 14:45 Temperature 36.8 C 06/28/22 14:45 Temperature Source Oral 06/28/22 14:45 Pulse 76 06/28/22 14:45 Respiratory Rate 15 06/28/22 14:45 Respiratory Effort Normal 06/28/22 14:47 Blood Pressure 115/63 06/28/22 14:45 Blood Pressure Position Sitting 06/28/22 14:45 Pulse Oximetry 94 06/28/22 14:45 Oxygen Delivery Method Room Air 06/28/22 14:45 Oxygen Flow Rate 0 06/28/22 14:45 Pain Level 5 06/28/22 14:49 PAWSS Have you Been Recently Intoxicated or Drunk Within the Last 30 days?: No Have you Ever Experienced Previous Episodes of Alcohol Withdrawal?: No Have you ever Experienced Withdrawal Seizures?: No Have you ever Experienced Delirium Tremens(DT)s?: No Have you ever undergone Alcohol Rehabilitation Treatment (i.e, inpt ot outpatient treatment programs)?: No Have you ever Experienced Blackouts?: No Have you ever Combined Alcohol with other Downers within the last 90 days?: No Have you ever Combined Alcohol with any other Substance of Abuse during the last 90 days?: No Result: 0
== END 2022-06-28 16:30 | disposition home or self-care (01) ==
PROVIDERS: Emergency Provider Nurse Practitioner Family; PCP Nurse Practitioner Family
DX: S83.411A Sprain of medial collateral ligament of right knee, initial encounter (principal); W17.89XA Other fall from one level to another, initial encounter; Y99.0 Civilian activity done for income or pay
CPT/HCPCS: 29505; 73562; 99283

== ENCOUNTER 2022-08-12 00:13 | Outpatient (CLI) | payer OTHER, SELFPAY ==
--- NOTE | 2022-08-12 06:30 | DI.MRI_ITS ---
Exam(s) MR LOWER JOINT RT WO EXAM: MR LOWER JOINT RT WO CLINICAL HISTORY: right knee pain and instability,mcl sprain,s83.411a,m25.561. TECHNIQUE: Multiplanar multisequence MRI was performed. COMPARISON: CR XR KNEE RT 3V AP,LAT,TOMMY from 06/28/2022 FINDINGS: BONES: Contusion of the lateral femoral condyle and lateral tibial plateau. Small impaction fract ure at the posterior aspect of the lateral tibial plateau. No significant step-off at the articular surface. Edema in the proximal fibula with nondisplaced fracture lines. JOINTS: Large joint effusion is present. Articular cartilage: Patellofemoral joint: Articular cartilage is unremarkable. Medial femoral tibial joint: Articular cartilage is unremarkable. Lateral femoral tibial joint: Articular cartilage is unremarkable. TENDONS: Extensor mechanism: Unremarkable. Medial retinaculum: Unremarkable. Lateral retinaculum: Unremarkable. Popliteus: Unremarkable. MUSCLES: Unremarkable. MENISCI: The medial meniscus is unremarkable. The lateral meniscus is unremarkable. SOFT TISSUES: Small Stokes's cyst seen posteriorly at the level of the joint. Inferiorly, medial to t he medial head of the gastrocnemius muscle, there is a partially included localized collection which could represent a hematoma. It is slightly high signal and the T1 weighted images. There is some ed oral in the subcutaneous fat. LIGAMENTS: Anterior Cruciate: Full-thickness tear. Posterior Cruciate: Unremarkable. Medial Collateral:Thickening and surrounding fluid. Tear at tibial attachment. Lateral Collateral: Surrounding fluid but no visible tear. IMPRESSION: Full-thickness ACL tear. Contusion of the lateral tibial plateau with small posterior impaction fracture. Nondisplaced fracture proximal fibula. Medial collateral ligament tear. Probable medial calf hematoma. DATA REPOSITORY:
== END 2022-08-12 00:33 ==
LOC: DI 00:13
PROVIDERS: PCP Nurse Practitioner Family; Visit Provider Nurse Practitioner Family
DX: S83.511A Sprain of anterior cruciate ligament of right knee, initial encounter (principal); X58.XXXA Exposure to other specified factors, initial encounter; S82.121A Displaced fracture of lateral condyle of right tibia, initial encounter for closed fracture; S82.454A Nondisplaced comminuted fracture of shaft of right fibula, initial encounter for closed fracture; S83.411A Sprain of medial collateral ligament of right knee, initial encounter
CPT/HCPCS: 73721

== ENCOUNTER → 2022-10-03 03:53 | Outpatient (CLI) | payer OTHER, SELFPAY ==
--- NOTE | 2022-10-03 09:15 | DI.MRI_ITS ---
Exam(s) MR LOWER JOINT RT WO EXAM: MR LOWER JOINT RT WO CLINICAL HISTORY: ? LATERAL MENISCAL TEAR,CLOSED FX PROX RT FIBULA,S83.8X9A,S82.831A. TECHNIQUE: Multiplanar multisequence MRI was performed. COMPARISON: CR XR KNEE RT 3V AP,LAT,TOMMY from 06/28/2022 MR MR LOWER JOINT RT WO from 08/12/2022 FINDINGS: BONES: Near complete resolution of the marrow edema seen in the lateral femoral condyle and lateral p roximal tibia since 08/12/2022. There is also a significant decrease in the edema seen in the proxima l fibula. No evidence of a new fracture is seen. JOINTS: Small hyperintense focus in the medial patellar facet. There is a joint effusion present. TENDONS: Extensor mechanism: Unremarkable. Medial retinaculum: Unremarkable. Lateral retinaculum: Unremarkable. Popliteus: Unremarkable. MUSCLES: Unremarkable. MENISCI: The medial meniscus is unremarkable. The root of the lateral meniscus is indistinct suspici ous for tear. The remainder of the meniscus is unremarkable. SOFT TISSUES: There is a popliteal cyst present. LIGAMENTS: Anterior Cruciate: The anterior cruciate ligament is indistinct particularly in its midportion suspic ious for at least a partial tear. Posterior Cruciate: Unremarkable. Medial Collateral:There is mild hyperintense signal seen near the insertion site of the deep componen t of the medial collateral ligament at its insertion site onto the medial femoral condyle which may r epresent a partial tear. Lateral Collateral: Unremarkable. OTHER: IMPRESSION: 1. Significant decrease in the edema seen in the lateral femoral condyle, lateral tibial plateau and proximal fibula since 08/12/2022. No evidence of a new fracture. 2. Indistinct appearance of the root of the lateral meniscus suspicious for tear. 3. Findings suspicious for partial anterior cruciate ligament tear. 4. Findings suspicious for partial tear of the insertion site of the deep component of the medial col lateral ligament. 5. Joint effusion and popliteal cyst. DATA REPOSITORY:
== END ==
PROVIDERS: PCP Nurse Practitioner Family; Visit Provider Student in an Organized Health Care Education/Training Program
DX: X58.XXXA Exposure to other specified factors, initial encounter (principal); S83.8X1A Sprain of other specified parts of right knee, initial encounter
CPT/HCPCS: 73721

== ENCOUNTER 2022-10-31 14:34 | Outpatient (CLI) | payer BC, SELFPAY ==
[2022-10-31 10:43] LABS: Calculated LDL 85 mg/dL (<100); Cholesterol 157 mg/dL (<200); HDL Cholesterol 57 mg/dL (40-60); Triglyceride 76 mg/dL (<150)
[2022-10-31 17:51] LABS: PSA, Screening 0.3 ng/mL (<=3.5)
== END 2022-10-31 14:35 | disposition home or self-care (01) ==
LOC: LBO 14:34
PROVIDERS: PCP Nurse Practitioner Family; Visit Provider Nurse Practitioner Family
DX: E78.5 Hyperlipidemia, unspecified (principal); N40.0 Benign prostatic hyperplasia without lower urinary tract symptoms
CPT/HCPCS: 36415; 80061; 84153

== ENCOUNTER 2024-01-01 11:51 | Outpatient (CLI) | payer BC, SELFPAY ==
[2024-01-01 11:57] LABS: Hemoglobin A1C 5.5 % (<5.7)
[2024-01-01 12:22] LABS: ALT 70 U/L (16-63); AST 50 U/L (15-37); Albumin 4.2 g/dL (3.4-5.0); Alkaline Phosphatase 84 U/L (46-116); Anion Gap 5.8 mmol/L (3-11); BUN 20 mg/dL (7-18); CO2 32.2 mmol/L (21.0-32.0); CREATININE 1.2 mg/dL (0.70-1.30); Calcium 9.5 mg/dL (8.5-10.1); Calculated LDL 64 mg/dL (<100); Chloride 104 mmol/L (98-107); Cholesterol 155 mg/dL (<200); Estimated GFR 71.86 (mL/min/1.73m2); Glucose 87 mg/dL (74-106); HDL Cholesterol 76 mg/dL (40-60); Potassium 4.5 mmol/L (3.5-5.1); Sodium 142 mmol/L (136-145); Total Protein 8.1 g/dL (6.4-8.2); Triglyceride 75 mg/dL (<150)
== END 2024-01-01 11:52 | disposition home or self-care (01) ==
LOC: LBO 11:51
PROVIDERS: PCP Nurse Practitioner Family; Visit Provider Nurse Practitioner Family
DX: R74.8 Abnormal levels of other serum enzymes (principal); Z13.1 Encounter for screening for diabetes mellitus; Z13.220 Encounter for screening for lipoid disorders
CPT/HCPCS: 36415; 80053; 80061; 83036